=== PATIENT | female | born 1955 | race Caucasian/White ===

== ENCOUNTER 2019-12-10 13:45 | Outpatient (RCR) | payer MEDICARE, SELFPAY ==
--- NOTE | 2019-11-24 15:47 | PTOPEVAL ---
Thank you for referring Isabel Fernando to [facility]. Please review, sign, date and return this plan of care JOSLYN. I agree with and certify that the following plan of care is medically necessary. Referring Physician Date Admitting Provider: Attending Provider: Mini Spaulding, Referring Provider: *PT Outpatient Evaluation Start: 11/24/19 14:06 Freq: Status: Active Protocol: Document 11/24/19 14:14 GEORGE (Rec: 11/24/19 15:23 [facility] [email or web address]) Therapy Assessment Status Assessment Status Assessment Status Evaluation Outpatient Past Medical History Cardiovascular History Hx Hypertension Yes Musculoskeletal History Hx Back Injury Yes: L4 fracutre at age 27 Hx Joint Replacement Yes: right knee Endocrine History Hx Diabetes Yes Psychosocial History Hx Depression Yes: medication Other History Hx Cancer Yes: breast cx 2010 Evaluation Information Problem Diagnosis low back pain Onset January 2019 Cause lifting/carrying Subjective Information States that her back pain has existed since January 2019 when she moved houses. She feels that from all the lifting aggravated her sciatic nerve. States that it used to come and go, but now it is more constant and she experiences the symptoms on both sides. States she has been through therapy before so she has been trying to do those exercises that she previously learned. Functionally she is not able to walk as long as she used to. Denies constitutional symptoms or change in bowel/bladder function Previous Treatments For This Problem medication: cyclobenzaprine, acetaminophen/codein 3 Self Report Pain Assessment Lower Back Reported Pain Level 8 Pain Description Numbness,Tingling Pain Radiation Left Leg,Right Leg Pain Frequency Chronic,Continuous Lowest Pain Intensity 8 Greatest Pain Intensity 10 Pain Aggravating Factors Stair Climbing,Walking,Weight Bearing/Standing Lumbar ROM Lumbar Flexion Active Floor Query Text:Hands to: Lumbar Extension (0-40) 10 Lateral Rotation bilateral (0-45) 30 Normal Lumbar Segmental Motion No Lumbar Comments reports no increased pain with ROM activities Cervical and Lumbar Muscle Testing Lumbar Strength Upper Abdominal Strength 3 Fair Lower Abdominal Strength 3-Fair- Lower Extremity Muscle Strength Testing Hip Strength Bilateral Hip Flexion Strength 4 Good Hip Extension Strength 3- Fair - Hip Abduction Strength 3 Fair Hip Strength Comments pain with hip flexion Knee Strength Bilateral Knee Flex
--- NOTE | 2019-12-15 10:46 | PCPTNOTE ---
Patient called & cancelled scheduled appointment this date due to not feeling well.
--- NOTE | 2019-12-17 12:51 | PCPTNOTE ---
Patient did not show up for scheduled appointment this date.
--- NOTE | 2019-12-22 13:16 | PCPTNOTE ---
Patient did not show up for scheduled appointment this date.
--- NOTE | 2020-01-28 16:03 | PTOPEVAL ---
Thank you for referring Isabel Fernando to [facility]. Please review, sign, date and return this plan of care JOSLYN. I agree with and certify that the following plan of care is medically necessary. Referring Physician Date Admitting Provider: Attending Provider: Mini Spaulding, MD Referring Provider: *PT Outpatient Evaluation Start: 11/24/19 14:06 Freq: Status: Active Protocol: Document 11/24/19 14:14 GEORGE (Rec: 11/24/19 15:23 GEORGE [email or web address]) Therapy Assessment Status Assessment Status Assessment Status Evaluation Outpatient Past Medical History Cardiovascular History Hx Hypertension Yes Musculoskeletal History Hx Back Injury Yes: L4 fracutre at age 27 Hx Joint Replacement Yes: right knee Endocrine History Hx Diabetes Yes Psychosocial History Hx Depression Yes: medication Other History Hx Cancer Yes: breast cx 2009 Evaluation Information Problem Diagnosis low back pain Onset January 2019 Cause lifting/carrying Subjective Information States that her back pain has Query Text:As Reported By Patient/ exsisted since January 2019 Family when she moved houses. She feels that from all the lifting aggravated her sciatic nerve. States that it used to come and go, but now it is more constant and she experiences the symptoms on both sides. States she has been through therapy before so she has been trying to do those exercises that she previously learned. Functionally she is not able to walk as long as she used to Previous Treatments Previous Treatments For This Problem medication: cyclobenzaprine, acetaminophen/codein 3 Pain Assessment Timing of Pain Assessment Timing of Pain Assessment Assessment Pain Scale Pain Scale Used Numeric (1 - 10) Self Report Pain Assessment Lower Back Reported Pain Level 8 Pain Description Numbness,Tingling Pain Radiation Left Leg,Right Leg Pain Frequency Chronic,Continuous Lowest Pain Intensity 8 Greatest Pain Intensity 10 Pain Aggravating Factors Stair Climbing,Walking,Weight Bearing/Standing Pain Score Pain Score 8: Self Report Cervical and Lumbar ROM Lumbar RO
--- NOTE | 2020-01-28 16:03 | PCPTNOTE ---
PHYSICAL THERAPY DISCHARGE Attending Provider: Mini Spaulding, Patient:Isabel Fernando Date of :1955 Patient has not returned for any further treatments since 12/10/2019, therefore she will be discharged at this time. Patient?s initial visit was on 11/24/2019 and had a total of 4 visits. The goals have not been assessed. Thank you for referring this patient to [facility]. Please review, sign, date and return this discharge summary JOSLYN. I have been updated about the patient's current status and I agree with discharge from the above service at this time. Referring Physician Date
== END 2020-01-29 08:26 | disposition home or self-care (01) ==
LOC: ANHPT 13:45
PROVIDERS: PCP Family Medicine; Visit Provider Family Medicine
DX: M54.5 Low back pain (principal)
CPT/HCPCS: 97014; 97110; 97140; 97162; G0283

== ENCOUNTER 2020-05-02 10:07 | Outpatient (CLI) | payer MEDICARE, SELFPAY ==
--- NOTE | ~2020-05-02 | XR_ITS ---
EXAMINATION: XR lumbar spine 2-3V DATE: 05/02/2020 10:48 INDICATION: Lumbago. TECHNIQUE: 3 views of lumbar spine were obtained. COMPARISON: None. FINDINGS: There is 9 degrees levocurvature of lumbar spine. Vertebral body heights are normal. There is moderately decreased disc height at L2-L3, mildly decreased disc height at L3-L4, and severely dec reased disc height at L4-L5 and L5-S1. There are endplate osteophytes at all levels. There is multile albert severe facet joint osteoarthritis in lumbar spine. IMPRESSION: 1. Severe lumbar spondylosis. Reviewed, dictated and finalized at location B. NTORY ASSISTANT
== END 2020-05-02 10:08 | disposition home or self-care (01) ==
LOC: ANHIMG 10:20
PROVIDERS: PCP Family Medicine; Visit Provider Family Medicine
DX: M54.41 Lumbago with sciatica, right side (principal); M47.896 Other spondylosis, lumbar region
CPT/HCPCS: 72100

== ENCOUNTER 2020-05-20 12:31 | Outpatient (CLI) | payer MEDICARE, SELFPAY ==
--- NOTE | ~2020-05-20 | MR_ITS ---
EXAMINATION: MR lumbar spine wo/w con DATE: 05/20/2020 13:55 INDICATION: Other spondylosis, lumbar. TECHNIQUE: Magnetic resonance imaging (MRI) of the lumbar spine was performed without and with 18 mL MultiHance intravenous contrast. Sequences included sagittal T2-weighted FSE, sagittal T2-weighted FS FSE, and sagittal and axial T1-weighted FSE. Postcontrast sequences included axial T2-weighted FSE a nd axial and sagittal T1-weighted FS FSE. COMPARISON: Lumbar spine radiographs 05/02/2020 FINDINGS: There is 9 degrees levocurvature of lumbar spine. Vertebral body heights are normal. There is mildly decreased disc height at L1-L2, moderately decreased disc height at L2-L3 and L3-L4, and se verely decreased disc height at L4-L5 and L5-S1. The distal spinal cord signal intensity is normal. T he conus medullaris is at L1. The following disc levels are specifically discussed: L1-L2: The disc is bulging and has an annular fissure. There is mild right and moderate left facet henrry int osteoarthritis. There is mild bilateral neural foraminal stenosis. There is mild central canal st enosis. L2-L3: The disc is bulging and has an annular fissure. There is severe right and moderate left facet joint osteoarthritis. There is mild bilateral neural foraminal stenosis. There is mild central canal stenosis. L3-L4: The disc is bulging and has an annular fissure. There is severe bilateral facet joint osteoart hritis. There is moderate right and mild left neural foraminal stenosis. There is mild central canal stenosis. L4-L5: The disc is bulging and has an annular fissure. There is severe bilateral facet joint osteoart hritis. There is moderate right and mild left neural foraminal stenosis. There is mild central canal stenosis. L5-S1: The disc is bulging and has an annular fissure. There is severe bilateral facet joint osteoart hritis. There is mild right and moderate left neural foraminal stenosis. There is mild central canal stenosis. IMPRESSION: 1. Severe lumbar spondylosis. Reviewed, dictated and finalized at location A. ER HAND
[2020-05-20 13:20] LABS: Estimated Glomerular Filt Rate 56
== END 2020-05-20 12:32 | disposition home or self-care (01) ==
PROVIDERS: PCP Family Medicine; Visit Provider Family Medicine
DX: M47.817 Spondylosis without myelopathy or radiculopathy, lumbosacral region (principal); R30.9 Painful micturition, unspecified; M48.07 Spinal stenosis, lumbosacral region
CPT/HCPCS: 72158; A9577

== ENCOUNTER 2020-07-29 09:37 | Outpatient (CLI) | payer MEDICARE, SELFPAY ==
--- NOTE | ~2020-07-29 | US_ITS ---
US right upper quadrant DATE: 07/29/2020 12:41 INDICATION: Elevated liver enzymes TECHNIQUE: Real-time imaging of liver, pancreas, gallbladder areas COMPARISON: None FINDINGS: There is fatty infiltration of the liver. No hepatic space-occupying mass lesion is evident . Normal hepatopedal portal venous flow direction. No pancreatic mass lesion is evident. No gallstone s or gallbladder wall thickening. Negative sonographic Grande's sign. The common bile duct measures 3 .8 mm, normal. IMPRESSION: Hepatic steatosis Reviewed, dictated and finalized at Location A. Reviewed, dictated and finalized at location A. ATRIC RADIOLOGIST IMPRESSION: Hepatic steatosis
== END 2020-07-29 09:38 | disposition home or self-care (01) ==
PROVIDERS: PCP Family Medicine; Visit Provider Family Medicine
DX: R74.01 Elevation of levels of liver transaminase levels (principal); K76.0 Fatty (change of) liver, not elsewhere classified
CPT/HCPCS: 76705

== ENCOUNTER 2020-09-05 12:30 | Outpatient (RCR) | payer MEDICARE, SELFPAY ==
--- NOTE | 2020-08-18 10:43 | PTOPEVAL ---
Thank you for referring Isabel Fernando to [facility].? The patient is scheduled to be seen for therapy? 2 x/week for 6 weeks. Please review, sign, date and return this plan of care JOSLYN. I agree with and certify that the following plan of care is medically necessary. Referring Physician Date Referring Provider: Denton Beal MD Evaluation Information Problem Diagnosis lumbar stenosis Onset 3 yrs Additional Evaluation Detail She walks 2 blocks with her dogs but not consistently depending on weather She tripped over an object on the floor in April. Then she missed a step when standing near the steps a few weeks ago. CBD gummies to pain relief Subjective Information When she was ~23 she fell from Query Text:As Reported By Patient/ a rope swing fracturing her Family back. She reports chronic back pain that causes pain and weakness into her legs. The pain increased 1 yr ago. She walks the steps at home 10 times a day. But not performing an exercise program . She is unable to perform community walking. 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 She requires multiple rest due to pain. She performs yardwork during the summer. She recently finished painting the basement. Diagnostic Tests MRI For This Problem Yes: stenosis and bulging disc Previous Treatments Previous Treatments For This Problem 8 months ago Pain Assessment Self Report Pain Assessment Bilateral Lower Back Reported Pain Level 8 Pain Description Aching,Numbness,Radiating, Tender on Palpation Pain Radiation Left Leg,Right Leg Pain Frequency Chronic Lowest Pain Intensity 6 Greatest Pain Intensity 10 Cervical and Lumbar ROM Lumbar Flexion Active [place] Query Text:Hands to: Lateral Flexion distal thigh Query Text:Active Hands to: Lumbar Comments 10% trunk ext flex 50% of motion lateral flex 75% of motion pain with all trunk motions Lower Extremity Range of Mo
--- NOTE | 2020-09-01 12:50 | PCPTNOTE ---
Patient called & cancelled scheduled appointment this date due to not feeling well.
--- NOTE | 2020-09-08 13:26 | PCPTNOTE ---
Patient called & cancelled scheduled appointment this date due to not feeling well.
--- NOTE | 2020-09-12 14:40 | PCPTNOTE ---
Patient called & cancelled all scheduled appointments this date stating she is going to see a chiropractor who stated to hold on therapy at this time.
--- NOTE | 2020-09-13 07:48 | PCPTNOTE ---
Admitting Provider: Attending Provider: PHYSICIAN NOT ON STAFF Patient:Isabel Fernando Date of :1955 Discharge Note Patient has not returned for any further treatments since 09/05/2020, therefore she will be discharged at this time. She called to cancel her remaining visits due to going to a chiropractor instead. Patient?s initial visit was on 08/18/2020 09:30 and she had a total of 5 visits with 3 cancelled visits. The goals have been not met at this time due to limited therapy visits. Thank you for referring this patient to [facility]. Please review, sign, date and return this discharge summary JOSLYN. I have been updated about the patient's current status and I agree with discharge from the above service at this time. Referring Physician Date
== END 2020-09-13 10:10 | disposition home or self-care (01) ==
LOC: ANHPT 12:30
PROVIDERS: PCP Family Medicine
DX: M48.061 Spinal stenosis, lumbar region without neurogenic claudication (principal); M46.1 Sacroiliitis, not elsewhere classified
CPT/HCPCS: 97110; 97140; 97162

== ENCOUNTER 2021-06-19 15:46 | Emergency (ER) | payer MEDICARE, SELFPAY ==
[2021-06-19 16:39] VITALS: BP 151/100; PULSE 76; RESP 20; TEMP 36.2; O2SAT 98
--- NOTE | 2021-06-19 18:41 | ED.URI ---
HPI - URI/Sore Throat General Chief Complaint: Upper Respiratory Infection Stated Complaint: Runny nose, cough, sore throat Time Seen by Provider: 06/19/21 18:41 Source: patient Mode of arrival: ambulatory Limitations: no limitations History of Present Illness HPI Narrative: Isabel Fernando is a 66 yo female with depression, GERD, HTN, urinary incontinence, with cold symptoms and congestion and cough. Started on Saturday afternoon. she is fully vaccinated and has had a flu vaccine Related Data Home Medications Medication Instructions Recorded Confirmed citalopram 40 mg PO DAILY 06/19/21 06/19/21 dexlansoprazole [Dexilant] 60 mg PO DAILY 06/19/21 06/19/21 lisinopril-hydrochlorothiazide 1 tablet PO DAILY 06/19/21 06/19/21 losartan-hydrochlorothiazide 1 tablet PO DAILY 06/19/21 06/19/21 montelukast 10 mg PO DAILY 06/19/21 06/19/21 oxybutynin chloride 5 mg PO DAILY 06/19/21 06/19/21 ropinirole 0.5 mg PO DAILY 06/19/21 06/19/21 trazodone 100 mg PO DAILY 06/19/21 06/19/21 Allergies Allergy/AdvReac Type Severity Reaction Status Date / Time No Known Allergies Allergy Verified 06/19/21 18:12 Review of Systems Review of Systems: CONSTITUTIONAL: Denies fever, chills, sweats. EYES: Denies visual changes, redness, discharge. ENT: Denies rhinorrhea, has congestion, there has sore throat, otalgia. Has sinus congestion CARDIOVASCULAR: Denies chest pain, palpitations, edema. RESPIRATORY: Denies dyspnea, wheezing, has 1 cough GASTROINTESTINAL: Denies abdominal pain, nausea, vomiting, diarrhea. GENITOURINARY: Denies dysuria, hematuria, abnormal discharge SKIN: Denies rash or itching. NEUROLOGIC: Denies numbness, or focal weakness. PSYCHIATRIC: Denies anxiety or depression. [facility] Past Medical History Medical History Depression GERD (gastroesophageal reflux disease) Hypertension Seasonal allergies Social History Social History (Updated 06/19/21 @ 18:46 by Polly Anaya CNP) Smoking status: Never smoker Alcohol intake: current Comments At time of signature, I agree with nursing past medical, surgical, social and family history. There is no relevant family history pertinent to the presenting complaint. Exam Narrative: GENERAL: This is a well-nourished, well-developed patient, in mild distress. HEAD: normocephalic, atraumatic. EYES: PERRL. Sclera clear/white. Vision is grossly intact. EARS: External ears normal, auditory canals erythema and without drainage, fluid behind TMs. Hearing grossly intact. NOSE: External nose normal without nasal discharge, nares with redness, has rhinorrhea. THROAT: Mucous membranes moist, posterior pharynx erythema NECK: Neck supple, non-tender CARDIOVASCULAR: Regular rate and rhythm without murmurs, gallops, or rubs. RESPIRATORY: Clear to auscultation. Breath sounds equal bilaterally. No wheezes, rales, or rhonchi. GASTROINTESTINAL: Abdomen soft, SKIN: warm, intact with no suspicious lesions or rash, good texture and turgor. NEURO: awake, alert, and oriented to person, place and time. There were no obvious focal neurologic abnormalities. Steady gait EXTREMITIES: Normal range of motion. BACK: Nontender without deformity Course Course Emergency Course: Patient here with upper respiratory infection symptoms she has been Covid and flu vaccinated this started on Saturday afternoon and have not really improved with NyQuil and DayQuil Started on prednisone, Alex Beasley, Zyrtec Follow-up with PCP Vital Signs Vital signs: Vital Signs Temperature 97.1 F L 06/19/21 16:39 Pulse Rate 76 06/19/21 16:39 Respiratory Rate 20 06/19/21 16:39 Blood Pressure 151/100 H 06/19/21 16:39 Pulse Oximetry 98 06/19/21 16:39 Temperature 97.1 F L 06/19/21 16:39 Pulse Rate 76 06/19/21 16:39 Respiratory Rate 20 06/19/21 16:39 Blood Pressure 151/100 H 06/19/21 16:39 Pulse Oximetry 98 06/19/21 16:39 MDM - URI/Sore Throa
== END 2021-06-19 18:55 | disposition home or self-care (01) ==
PROVIDERS: Emergency Provider Nurse Practitioner
DX: J06.9 Acute upper respiratory infection, unspecified (principal); K21.9 Gastro-esophageal reflux disease without esophagitis; I10 Essential (primary) hypertension; F32.A Depression, unspecified
CPT/HCPCS: 87081; 87880; 99213; G0463

== ENCOUNTER 2023-04-03 13:48 | Outpatient (CLI) | payer MEDICARE, SELFPAY ==
--- NOTE | ~2023-04-03 | MR_ITS ---
EXAMINATION: MR lumbar spine wo con DATE: 04/03/2023 14:22 INDICATION: Left-sided low back pain. Lumbar radiculopathy.. TECHNIQUE: Magnetic resonance imaging (MRI) of the lumbar spine was performed without intravenous con trast. Sequences included sagittal T2-weighted FSE, sagittal T2-weighted FS FSE, sagittal T1-weighted FSE, and axial T2-weighted FSE. COMPARISON: Lumbar spine MRI 05/20/2020 FINDINGS: There is 13 degrees levoscoliosis of lumbar spine. Vertebral body heights are normal. There is moderately decreased disc height at L2-L3, mildly decreased disc height at L3-L4, and severely de creased disc height at L4-L5 and L5-S1. The distal spinal cord signal intensity is normal. The conus medullaris is at L1. The following disc levels are specifically discussed: L1-L2: The disc is bulging. There is moderate bilateral facet joint osteoarthritis. There is mild rig ht neural foraminal stenosis. There is mild central canal stenosis. L2-L3: The disc is bulging and has an annular fissure. There is severe bilateral facet joint osteoart hritis. There is mild bilateral neural foraminal stenosis. There is mild central canal stenosis. L3-L4: The disc is bulging and has an annular fissure. There is moderate bilateral facet joint osteoa rthritis. There is mild bilateral neural foraminal stenosis. There is mild central canal stenosis. L4-L5: The disc is bulging and has an annular fissure. There is severe bilateral facet joint osteoart hritis. There is moderate right and mild left neural foraminal stenosis. There is mild central canal stenosis with posterior decompression. L5-S1: The disc is bulging. There is severe bilateral facet joint osteoarthritis. There is mild right and moderate left neural foraminal stenosis. There is mild central canal stenosis. IMPRESSION: 1. Severe lumbar spondylosis with improvement from 05/20/2020 status post posterior decompression. 2. Lumbar levoscoliosis. Reviewed, dictated and finalized at location A. IMPRESSION: 1. Severe lumbar spondylosis with improvement from 05/20/2020 status post poste rior decompression. 2. Lumbar levoscoliosis.
== END 2023-04-03 13:49 ==
LOC: MICIMG 13:50
PROVIDERS: PCP Nurse Practitioner Family; Visit Provider Nurse Practitioner Family
DX: M47.26 Other spondylosis with radiculopathy, lumbar region (principal); M41.9 Scoliosis, unspecified
CPT/HCPCS: 72148

== ENCOUNTER 2023-04-11 12:34 | Emergency (ER) | payer MEDICARE, SELFPAY ==
[2023-04-11] VITALS (13 sets, daily range): BP systolic 90–111; BP diastolic 49–86; PULSE 53–63; RESP 16–20; TEMP 36.7; O2SAT 97–100
--- NOTE | 2023-04-11 12:47 | ECG_ITS ---
Measurements Intervals [place] Rate: 60 P: 38 OR: 190 QRS: 25 QRSD: 78 T: 43 QT: 434 QTc: 434 Interpretive Statements SINUS RHYTHM NO PREVIOUS ECG AVAILABLE FOR COMPARISON Electronically Signed On 04-12-2023 7:45:10 CDT by Josefina Rosales MD
--- NOTE | 2023-04-11 13:49 | ED.GENADULT ---
HPI - General Adult General Chief complaint: Recheck/Abnormal Lab/Rx Stated complaint: HYPOTENSION AT PAIN CLINIC Time Seen by Provider: 04/11/23 12:45 History of Present Illness HPI narrative: 67-year-old female presented the emergency department for evaluation of low blood pressure. Patient was at the pain clinic getting an injection for her lower back and her vitals were checked and she was found to have a low blood pressure. Patient was asymptomatic with this. Patient states she does not only take medications for high blood pressure. Patient states she has been eating and drinking well. Patient was able to drive to the clinic and ambulated in without any issues. Patient denies any associated lightheaded or dizziness. In the emergency department patient denies any complaints. Patient arrived to the emergency department by EMS from the pain clinic and did receive 500 mL of lactated Ringer's. Related Data Allergies Allergy/AdvReac Type Severity Reaction Status Date / Time No Known Allergies Allergy Verified 04/11/23 13:52 Review of Systems Review of Systems: All systems reviewed & are unremarkable except as noted in HPI and below Exam Narrative: APPEARANCE: Well appearing, no pain, no distress, well-nourished. HEAD: normocephalic, atraumatic. EYES: PERRLA/EOMI, conjunctivae clear. NOSE: Normal no drainage EARS:TMS clear with good light reflex. THROAT: Pharynx clear, no exudate. NECK: Supple. No adenopathy, no masses. RESPIRATORY: Airway patent, respirations nonlabored. Clear to auscultation bilaterally, no rales, rhonchi, wheezing. CARDIOVASCULAR: Regular rate and rhythm without murmurs rubs or gallops. ABDOMINAL: Soft, nontender, nondistended, normal bowel sounds MUSCULOSKELETAL: Moves all extremities. Strength/ROM intact, No edema, No calf tenderness. NEURO: Alert. Cranial nerves II through XII intact. Grossly intact SKIN: Warm, dry. Normal Color Course Course Emergency Course: 67-year-old female present emergency department for evaluation of low blood pressure. Patient was treated with 1.5 L of fluid and does feel improved. Patient was asymptomatic upon arrival to the ED and patient is now requesting discharge to home. Patient is afebrile with no leukocytosis and a stable hemoglobin. No significant electrolyte abnormalities. Vital Signs Vital signs: Vital Signs Temperature 98.0 F 04/11/23 12:41 Pulse Rate 63 04/11/23 12:41 Respiratory Rate 20 04/11/23 12:41 Blood Pressure 101/54 L 04/11/23 12:41 Pulse Oximetry 100 04/11/23 12:41 Oxygen Delivery Room Air 04/11/23 12:41 Temperature 98.0 F 04/11/23 12:41 Pulse Rate 57 L 04/11/23 15:31 Respiratory Rate 16 04/11/23 15:31 Blood Pressure 111/57 L 04/11/23 15:31 Pulse Oximetry 99 04/11/23 15:31 Oxygen Delivery Room Air 04/11/23 12:41 Medical Decision Making Vital Signs Vital Signs: Vital Signs Temperature 98.0 F 04/11/23 12:41 Pulse Rate 63 04/11/23 12:41 Respiratory Rate 20 04/11/23 12:41 Blood Pressure 101/54 L 04/11/23 12:41 Pulse Oximetry 100 04/11/23 12:41 Oxygen Delivery Room Air 04/11/23 12:41 Temperature 98.0 F 04/11/23 12:41 Pulse Rate 57 L 04/11/23 15:31 Respiratory Rate 16 04/11/23 15:31 Blood Pressure 111/57 L 04/11/23 15:31 Pulse Oximetry 99 04/11/23 15:31 Oxygen Delivery Room Air 04/11/23 12:41 Lab Data Lab results reviewed: Yes I reviewed the patient's lab results. 04/11/23 14:33 04/11/23 14:33 Labs: Lab Results 04/11/23 Range/Units 14:33 WBC 4.8 (4.5-10.0) K/mm3 RBC 3.66 L (4.2-5.4) M/mm3 Hgb 11.6 L (12.0-15.0) g/dL Hct 36.3 L (37.0-47.0) % MCV 99.2 (80-100) fl MCH 31.7 (26-34) pg MCHC 32.0 (32-36) g/dl RDW 13.8 (11.5-14.5) % Plt Count 136 L (150-375) k/mm3 MPV 9.5 (7.4-10.4) fl Immature Gran % (Auto) 0.2 (0-0.5) % Neut % (Auto) 59.5 (45.5-73.1) % Lymph % (Auto) 33
[2023-04-11] MEDS: SODIUM CHLORIDE 0.9% IV 1,000 ML 999 ML IV CONT (13:56)
[2023-04-11 14:43] LABS: Basophils Percent Auto 0.2 % (0.2-1.2); Eosinophils Percent Auto 0.4 % (0-4.4); Hematocrit 36.3 % (37.0-47.0); Hemoglobin 11.6 g/dL (12.0-15.0); Immature Granulocyte Absolute 0.01 K/mm3 (0.00-0.031); Immature Granulocyte Percent A 0.2 % (0-0.5); Lymphocytes Percent Auto 33.1 % (18.3-44.2); Mean Corpuscular Hemoglobin 31.7 pg (26-34); Mean Corpuscular Volume 99.2 fl (80-100); Mean Platelet Volume 9.5 fl (7.4-10.4); Monocytes Absolute Auto 0.3 K/mm3 (0.1-0.6); Monocytes Percent Auto 6.6 % (2.6-8.5); Neutrophils Absolute Auto 2.9 K/mm3 (1.3-6.7); Neutrophils Percent Auto 59.5 % (45.5-73.1); Platelet Count Result 136 k/mm3 (150-375); Red Blood Count 3.66 M/mm3 (4.2-5.4); Red Cell Distribution Width 13.8 % (11.5-14.5); White Blood Count 4.8 K/mm3 (4.5-10.0)
[2023-04-11 14:55] LABS: Alanine Aminotransferase 24 U/L (6-35); Albumin Level 4.1 g/dL (3.5-5.1); Alkaline Phosphatase 190 U/L (38-126); Anion Gap 6 mmol/L (8-16); Aspartate Amino Transferase 32 U/L (14-36); Bilirubin,Total 1.4 mg/dL (0.2-1.3); Blood Urea Nitrogen 12 mg/dL (7-17); Calcium 8.9 mg/dL (8.4-10.2); Carbon Dioxide 24 mmol/L (22-30); Chloride 98 mmol/L (98-107); Estimated CRCL calculation 70 ml/min; Estimated Glomerular Filt Rate > 60; Glucose 129 mg/dL (65-110); Sodium 128 mmol/L (137-145)
[2023-04-11 15:22] LABS: Influenza A QL RT-PCR Negative (Negative); Influenza B QL RT-PCR Negative (Negative); RSV RNA, RT-PCR Negative (Negative); SARS-CoV-2 RNA PCR Negative (Negative)
== END 2023-04-11 15:46 | disposition home or self-care (01) ==
PROVIDERS: Emergency Provider Emergency Medicine; PCP Nurse Practitioner Family
DX: I95.9 Hypotension, unspecified (principal); Z20.822 Contact with and (suspected) exposure to COVID-19
CPT/HCPCS: 36415; 80053; 85025; 87637; 93005; 96360; 96361; 99283; J7030

== ENCOUNTER 2023-11-25 16:10 | Emergency (ER) | payer MEDICARE, SELFPAY ==
[2023-11-25 16:23] VITALS: BP 142/90; PULSE 89; RESP 20; TEMP 37.7; O2SAT 96
--- NOTE | 2023-11-25 20:13 | ED.EXTPRO ---
HPI - Extremity Problem General Chief complaint: Extremity Problem,Nontraumatic Stated complaint: Left Foot/Leg Swelling and Pain Time Seen by Provider: 11/25/23 16:26 Source: patient and RN notes reviewed Mode of arrival: ambulatory Limitations: no limitations History of Present Illness HPI Narrative: Patient presents today with a 3 week history of the left foot pain, primarily in the arch area, and extending to the medial ankle. Denies any injury or trauma. She has been applying ice. She also takes tramadol and Flexeril for her chronic pain, which have not been helping with her foot pain. She also reports similar pain to the right foot, but to a less degree. Patient states she is treated for chronic sciatica pain on the left side with injections. States she does have pain from the left SI joint that extends down the thigh, calf, to the foot. She recently quit physical therapy as she did not likely exercises. Related Data Home Medications Medication Instructions Recorded Confirmed cyclobenzaprine 5 mg tablet mg 11/25/23 dexlansoprazole 60 mg mg 11/25/23 capsule,biphase delayed release estradiol 2 mg tablet mg 11/25/23 montelukast 10 mg tablet mg 11/25/23 trazodone 100 mg tablet mg 11/25/23 Allergies Allergy/AdvReac Type Severity Reaction Status Date / Time No Known Allergies Allergy Verified 11/25/23 16:33 Review of Systems Review of Systems: CONSTITUTIONAL: Denies body aches, fever, chills, or sweats. EYES: Denies visual changes, redness, or discharge. ENT: Denies rhinorrhea, congestion, sore throat, or otalgia. CARDIOVASCULAR: Denies chest pain, palpitations, or edema. RESPIRATORY: Denies cough or dyspnea. GASTROINTESTINAL: Denies abdominal pain, nausea, vomiting, or diarrhea. GENITOURINARY: Denies dysuria or hematuria. SKIN: Denies rash, itching, or wounds. MUSCULOSKELETAL: + left foot pain NEUROLOGIC: Denies headache, numbness, tingling, or weakness. PSYCH: Denies depression or anxiety. [facility] Past Medical History Medical History (Updated 11/25/23 @ 20:15 by Ilda Dior, HAND ROUNDER, ) Chronic back pain Comments At time of signature, I have reviewed and agree with nursing past medical, surgical, social and family history unless otherwise noted. Please see nursing chart for further information. There is no relevant family history pertinent to the presenting complaint Exam Narrative: GENERAL: Well-appearing, well-nourished, and in no acute distress. HEAD: Normocephalic, atraumatic. EYES: EOMI. No redness or drainage. Conjunctivae normal. ENT: Mucous membranes pink and moist. NECK: Normal AROM. CHEST: No respiratory distress. EXTREMITIES: Left foot: Mild tenderness to the arch that extends to the medial ankle. Also some mild tenderness to the distal foot at the 3rd and 4th metatarsals. No edema, erythema, ecchymosis to the foot or ankle. No color change noted. Left foot appears consistent with a right foot in all aspects. Distal sensation intact. Capillary refill normal. Pedal pulse normal. Full range of motion of the ankle and all toes. SKIN: Warm, dry, no rash. Capillary refill normal. Normal skin turgor. NEURO: No focal deficits. Alert and oriented x3. Gait steady with cane. PSYCH: Normal affect. No signs of depression or anxiety. Course Course Level of Care: Express Care Visit Vital Signs Vital signs: Vital Signs Temperature 100 F H 11/25/23 16:23 Pulse Rate 89 11/25/23 16:23 Respiratory Rate 20 11/25/23 16:23 Blood Pressure 142/90 H 11/25/23 16:23 Pulse Oximetry 96 11/25/23 16:23 Oxygen Delivery Room Air 11/25/23 16:23 Temperature 100 F H 11/25/23 16:23 Pulse Rate 89 11/25/23 16:23 Respiratory Rate 20 11/25/23 16:23 Blood Pressure 142/90 H 11/25/23 16:23 Pulse Oximetry 96 11/25/23 16:23 Oxygen Delivery Room Air 11/25/23 16:23 Reviewed MDM - Extremity (Nontraumatic) MDM Narrative Medical decision making
== END 2023-11-25 16:55 | disposition home or self-care (01) ==
PROVIDERS: Emergency Provider Nurse Practitioner; PCP Nurse Practitioner Family
DX: M54.32 Sciatica, left side (principal)
CPT/HCPCS: 99212; G0463

== ENCOUNTER 2023-12-31 15:24 | Emergency (ER) | payer MEDICARE, SELFPAY ==
--- NOTE | ~2023-12-31 | US_ITS ---
EXAMINATION:US venous doppler LE LT INDICATION:Left leg pain TECHNIQUE: Multiple grayscale, color flow and Doppler images of the left lower extremity deep venous systems were obtained and reviewed. COMPARISON:No prior studies for comparison. FINDINGS: The common femoral, superficial femoral and popliteal veins demonstrate normal respiratory variation, augmentation and compressibility. Color flow is also seen within the posterior tibial, pe roneal, greater saphenous and profunda veins. IMPRESSION: 1: No lower extremity deep venous thrombosis. Reviewed, dictated and finalized at location B.
[2023-12-31 16:07] VITALS: BP 140/61; PULSE 85; RESP 16; TEMP 36.8; O2SAT 98
--- NOTE | 2023-12-31 17:52 | ED.EXTPRO ---
HPI - Extremity Problem General Chief complaint: Extremity Problem,Nontraumatic Stated complaint: left ankle swelling x 1 week Time Seen by Provider: 12/31/23 16:38 History of Present Illness HPI Narrative: This is a 68-year-old female with history of hypertension, who presents to emergency department complaining of left ankle swelling for the past week. The patient states both legs swell, though the left has been worse recently. She states this is worse with prolonged sitting and improves with elevation of the legs or walking. She denies chest pain, shortness of breath, loss of consciousness and has no other complaints at this time. Related Data Home Medications Medication Instructions Recorded Confirmed citalopram 40 mg tablet 40 mg PO DAILY 06/19/21 06/19/21 dexlansoprazole 60 mg 60 mg PO DAILY 06/19/21 06/19/21 capsule,biphase delayed release (Dexilant) lisinopril 20 1 tablet PO DAILY 06/19/21 06/19/21 mg-hydrochlorothiazide 12.5 mg tablet losartan 100 1 tablet PO DAILY 06/19/21 06/19/21 mg-hydrochlorothiazide 12.5 mg tablet montelukast 10 mg tablet 10 mg PO DAILY 06/19/21 06/19/21 oxybutynin chloride 5 mg tablet 5 mg PO DAILY 06/19/21 06/19/21 ropinirole 0.5 mg tablet 0.5 mg PO DAILY 06/19/21 06/19/21 trazodone 100 mg tablet 100 mg PO DAILY 06/19/21 06/19/21 Allergies Allergy/AdvReac Type Severity Reaction Status Date / Time No Known Allergies Allergy Verified 06/19/21 18:12 Review of Systems Review of Systems: All systems reviewed & are unremarkable except as noted in HPI and below PMFSH Past Medical History Medical History Depression GERD (gastroesophageal reflux disease) Hypertension Seasonal allergies Social History Social History (Updated 12/31/23 @ 19:29 by Roberto Rosado MD) Smoking status: Never smoker Alcohol intake: current Substance use: never Exam Narrative: GENERAL: Well-developed, well-nourished, and in no acute distress. HEAD: Normocephalic, atraumatic. EYES: PERRLA and EOMI. CHEST: Clear to auscultation. No respiratory distress. No wheezes rales or rhonchi HEART: Regular rate and rhythm. No murmur heard. Normal peripheral pulses. ABDOMEN: Soft, nontender, nondistended, normal active bowel sounds. EXTREMITIES: Normal range of motion. Bilateral lower extremity trace edema extending to the mid foreleg SKIN: Warm, dry, no rash. NEURO: Alert and oriented x3. No focal deficit. Moving all 4 limbs spontaneously PSYCH: Normal mood and affect. Course Course Emergency Course: 17:54 - Ultrasound of the left leg not concerning for DVT. I suspect dependent edema. I discussed further evaluation with the patient, including labs, and x-ray to evaluate for cardiac cause. The patient prefers to follow up with her primary care doctor. Will treat with a short course of Lasix. I discussed the findings and recommendations with the patient. Discussed return and emergency precautions including signs/symptoms of ACS and CHF. The patient voiced understanding and agreement with the plan. All questions answered to her satisfaction. Vital Signs Vital signs: Vital Signs Temperature 98.2 F 12/31/23 16:07 Pulse Rate 85 12/31/23 16:07 Respiratory Rate 16 12/31/23 16:07 Blood Pressure 140/61 12/31/23 16:07 Pulse Oximetry 98 12/31/23 16:07 Temperature 98.2 F 12/31/23 16:07 Pulse Rate 85 12/31/23 16:07 Respiratory Rate 16 12/31/23 16:07 Blood Pressure 140/61 12/31/23 16:07 Pulse Oximetry 98 12/31/23 16:07 MDM - Extremity (Nontraumatic) MDM Narrative Medical decision making narrative: Plan: Imaging, reassess Differential Diagnosis Differential diagnosis: Likely other (DVT, dependent edema, other) Discharge Plan Discharge Clinical Impression: Lower extremity edema Patient Disposition: Home, Self-Care Condition: Stable Instructions: Antibiotic Form, Leg Edema (E
== END 2023-12-31 18:02 | disposition home or self-care (01) ==
PROVIDERS: Emergency Provider Preventive Medicine Aerospace Medicine; PCP Nurse Practitioner Family
DX: R60.0 Localized edema (principal); I10 Essential (primary) hypertension; K21.9 Gastro-esophageal reflux disease without esophagitis; F32.A Depression, unspecified; Z79.899 Other long term (current) drug therapy
CPT/HCPCS: 93971; 99284

== ENCOUNTER 2025-01-25 16:25 | Outpatient (CLI) | payer MEDICARE, SELFPAY ==
--- NOTE | ~2025-01-25 | US_ITS ---
EXAMINATION: US venous doppler [facility] DATE: 01/25/2025 17:04 INDICATION: Lower limb pain TECHNIQUE: Grayscale ultrasound images without and with compression and Doppler ultrasound images of the bilateral lower extremity veins were obtained. COMPARISON: None. FINDINGS: The visualized portions of right common femoral vein, profunda (deep) femoral vein, femoral vein, pop liteal vein, posterior tibial veins, peroneal veins, gastrocnemius vein and greater saphenous vein ou tflow are patent. The visualized portions of left common femoral vein, profunda femoral vein, femoral vein, popliteal v ein, posterior tibial veins, peroneal veins, gastrocnemius vein and greater saphenous vein outflow ar e patent. IMPRESSION: 1. No deep venous thrombosis in either lower limb. Reviewed, dictated and finalized at location A.
--- OUTSIDE RECORDS SUMMARY | 2025-01-25 16:29 | XMS_ITS | Clinical Summary ---
Author Organization [facility] Address [facility] [place] [address] Care Team Providers Care Used Equipment Sales Representative Name Role Phone Linda Abbasi HA Primary Care Provider [phone] Allergies Active Allergy Reactions Criticality Noted Date Comments Cyclobenzaprine Swelling Medium 01/23/2024 Tape Contact Dermatitis High 06/30/2018 Cloth/Paper tape OK Medications citalopram (CELEXA) 10 MG tabletIndicatio ns:Anxiety TAKE 1 TABLET BY MOUTH EVERY DAY 90 tablet 3 12/05/19 24 Active traZODone (DESYREL) 100 MG tabletIndicatio ns:Primary insomnia Take 1 tablet (100 mg total) by mouth nightly at bedtime. 90 tablet 3 12/05/19 24 Active gabapentin (NEURONTIN) 300 MG capsuleIndicati ons:Lumbar spondylosis Take 1 capsule (300 mg total) by mouth 3 (three) times daily. 90 capsule 5 05/04/20 24 Active vitamin B-12 (CYANOCOBALAMIN ) 500 MCG tablet Take 1 tablet (500 mcg total) by mouth daily. Active fluticasone propionate (FLONASE) 50 MCG/ACT nasal sprayIndication s:Allergic rhinitis, unspecified seasonality, unspecified trigger 1 spray by Each Nostril route daily. 15.8 mL 5 06/22/20 24 Active vitamin E 100 UNIT capsule Take 1 capsule (100 Units total) by mouth daily. Active Vitamin D3 125 mcg Tab Take 1 tablet (125 mcg total) by mouth daily. Active tavaborole (KERYDIN) 5 % solutionIndicat ions:Toenail fungus APPLY TOPICALLY TO AFFECTED NAILS ONCE DAILY 10 mL 1 07/27/19 25 Active varenicline, starter pack, (CHANTIX STARTING MONTH ) 0.5 MG X 11 & 1 MG X 42 tabletIndicatio ns:Encounter for smoking cessation counseling Take one tablet daily for 3 days then increase to two times a day 53 each 07/27/19 25 Active KNEE BRACE MISC, DME,Indications :Chronic pain of left knee Apply 1 Device topically daily. 1 Device 08/04/19 25 Active montelukast (SINGULAIR) 10 MG tabletIndicatio ns:Allergies Take 1 tablet (10 mg total) by mouth daily. 30 tablet 11 10/10/19 25 Active dexlansoprazole (DEXILANT) 60 MG capsuleIndicati ons:Gastroesoph ageal reflux disease without esophagitis Take 1 capsule (60 mg total) by mouth daily. 90 capsule 10/17/19 25 Active traMADol (ULTRAM) 50 MG tabletIndicatio ns:Lumbar spondylosis,Bul ging lumbar disc TAKE 1 TO 2 TABLETS(50 TO 100 MG) BY MOUTH EVERY 8 HOURS NEEDED FOR PAIN OR CHRONIC PAIN 100 tablet 2 01/06/20 25 Active pantoprazole EC (PROTONIX) 40 MG tabletIndicatio ns:Gastroesopha geal reflux disease without esophagitis TAKE 1 TABLET(40 MG) BY MOUTH DAILY 90 tablet 01/16/20 25 Active traMADol (ULTRAM) 50 MG tabletIndicatio ns:Lumbar spondylosis,Bul ging lumbar disc TAKE 1 TO 2 TABLETS(50 TO 100 MG) BY MOUTH EVERY 8 HOURS NEEDED FOR PAIN OR CHRONIC PAIN 100 tablet 1 11/21/19 25 025 Discontinued pantoprazole EC (PROTONIX) 40 MG tabletIndicatio ns:Gastroesopha geal reflux disease without esophagitis TAKE 1 TABLET(40 MG) BY MOUTH DAILY 30 tablet 1 12/11/19 25 025 Discontinued Active Problems Problem Noted Date Diagnosed Date Morbid (severe) obesity due to excess calories 0 07/27/2024 Jaundice 07/27/2024 Toenail fungus 07/27/2024 Elevated liver enzymes 07/27/2024 Liver disease, chronic 07/27/2024 Mixed conductive and sensori neural hearing loss of both ears 07/27/2024 Tinnitus of both ears 07/27/2024 Allergic rhinitis, unspecifi ed seasonality, unspecified trigger 06/23/2024 Liver lesion 06/23/2024 Hepatomegaly 05/04/2024 Chronic pain of left knee 05/04/2024 Splenomegaly 05/04/2024 Early satiety 04/20/2024 Acute left ankle pain 01/23/2024 Ankle swelling, left 01/23/2024 Injury 01/23/2024 Left foot pain 01/23/2024 Bilateral sciatica 01/23/2024 Alcohol abuse, in remission 03/29/2023 Other fatigue 03/29/2023 Mixed stress and urge urinary incontinence 03/25 Status post lumbar spinal fusion 03/28/2022 Physical deconditioning 01/12/2022 Lumbar stenosis 01/10/2022 Sacroiliitis 06/26/2021 Lumbar spondylosis 06/26/2021 Chronic midline low back pain with left-sided sc iatica 06/26/2021 Bulging lumbar disc 06/26/2021 Atopic dermatitis, unspecified type 06/26/2021 Vitamin D deficiency 06/26/2021 Class 2 severe obesity due t o excess calories with serious comorbidity and body mass index (BMI) of 36.0 to 36.9 in adult 06/26/2021 Neuropathy 06/26/2021 Cigarette smoker 06/26/2021 Insomnia 04/18/2021 Anxiety 07/22/2019 Depressive disorder 07/22/2019 Hypertensive disorder 07/22/2019 Gastroesophageal reflux disease without esophagi tis 07/22/2019 Resolved Problems Problem Noted Date Diagnosed Date Resolved Date Screening for colon cancer 05/04/2024 1 07/11/2023 Malignant neoplasm of overla pping sites of pancreas ([facility]) 04/20/2024 06/22/2024 Muscle spasms of both lower extremities 12/06/2023 06/23/2024 Frequent urination 03/25/2023 Alcohol abuse 06/26/2021 06/23/2024 Chronic obstructive lung dis ease ([facility]) 07/22/2019 06/26/2021 Encounters Date Type Department Care Team Description 01/11/2025 Telephone [facility] Family [facility] Internal Medicine [address] [phone] Linda Abbasi FNP Health Maintenance Follow Up 01/05/2025 Results Follow-Up [facility] Internal [address] [phone] Linda Abbasi FNP COMPREHENSIVE METABOLIC PANEL 12/30/2024 Telephone [facility] Internal [address] [phone] Linda Abbasi FNP Results 12/28/2024 Scan HEALTH INFO SRVCS Scanned, [facility] 11/09/2024 Telephone [facility] Internal [address] [phone] Linda Abbasi FNP Medication 10/26/2024 Telephone [facility] Internal [address] [phone] Linda Abbasi FNP Lab Order from Last 3 Months Immunizations Immunization Administration Dates Next Due Flublok (RIV3, Trivalent, 0.5mL) 04/16/2024 Fluzone 6 Months+ Quad (0.5 mL Prefilled Syringe ) 04/08/2020 Fluzone High Dose - >Age 65 (Prefilled Syringe) 03/25/2023,05/08/2022 Influenza Adult (Generic) 2021,04/08/2020 Pneumococcal (Prevnar 20) 07/13/2022 Tdap (Adacel) 06/26/2021 Family History Medical History Relation Comments Heart Disease Father Stroke Father Cancer Maternal Grandmother breast canc er Cancer Mother breast cancer Breast Cancer Sister 1 Relation Status Comments Father Maternal Grandmother Mother Sister 1 Alive Sister 2 Alive Social History Tobacco Use Types Packs/Day Years Used Date Smoking Tobacco: Former Cigarettes Passive Smoke Exposure: Current Smokeless Tobacco: Never Tobacco Cessation:Counseling Given: Yes Alcohol Use Standard Drinks/Week Comments Not Currently 0 (1 standard drink = 0.6 oz pur e alcohol) quit 5 mons. ago PHQ-2 Answer Date Recorded Patient Health Questionnaire-2 Score 0 07/27/2024 Comments No Sex and Gender Information Value Date Recorded Sex Assigned at Female 07/27/2024 1:43 PM BUILDINGS PAINTER Legal Sex Female 6:34 PM CDT Gender Identity Female 07/27/2024 1:43 PM BUILDINGS PAINTER Sexual Orientation Not on file Last Filed Vital Signs Vital Sign Reading Time Taken Comments Blood Pressure 137/75 09/16/2024 2:04 PM CDT Pulse 74 09/16/2024 2:04 PM CDT Temperature 36.1 C (97 F) 09/16/2024 2:04 PM CDT Respiratory Rate 16 07/27/2024 1:49 PM BUILDINGS PAINTER Oxygen Saturation 95% 07/27/2024 1:49 PM BUILDINGS PAINTER Inhaled Oxygen Concentration - - Weight 94.3 kg (208 lb) 09/16/2024 2:04 PM CDT Height 160 cm (5' 3) 09/16/2024 2:04 PM CDT Body Mass Index 36.85 09/16/2024 2:04 PM CDT Plan of Treatment Health Maintenance Due Date Last Done Comments Mammogram Screening 1997 Zoster Vaccines (1 of 2) 2007 RSV Immunization or 60+ Years (1 - Risk 60-74 years 1-dose series) 2017 Annual Medicare Wellness Visit 2022 Dexa Scan (General) 2022 COVID-19 Vaccine ( season) 2024 04/16/2024, 04/12/2023, 05/08/2022, Additional history exists Colorectal Cancer Screening FIT-DNA (3 Years) 07/30/2025 07/30/2022, 07/30/2022 DTaP, Tdap and Td Vaccines (2 - Td or Tdap) 06/26/2031 06/26/2021 Pneumococcal Vaccine: 50+ Years Completed 07/13/2022 Hepatitis C Completed 04/17/2024, 06/28/2021 PHQ-2 (Physician [place]) Completed 07/27/2024 Meningococcal B Vaccine Aged Out No l onger eligible based on patient's age to complete this topic Meningococcal Vaccine Aged Out No asa zoe eligible based on patient's age to complete this topic RSV Immunizations Under 20 Months Aged Out No longer eligible based on patient's age to complete this topic Goals Goal Patient Goal Type Associated Problems Recent Progress Patient-Stated? Author Safety - demonstrates understanding of home safety measures General No Brandee Yu M, RN Medical Devices Implanted Type Area Juvenile Counselor Device Identifier Shelf Expiration Date Model / Serial / Lot Knee Components Knee Components Procedures Procedure Name Priority Date/Time Associated Diagnosis Comments COMPREHENSIVE METABOLIC PANEL Routine 12/28/2024 12:26 PM CDT Liver lesion Splenomegaly Hepatomegaly Elevated liver enzymes HEPATITIS PANEL,ACUTE Routine 04/17/2024 11:20 AM CDT Liver lesion Elevated liver enzymes Abnormal CT of the abdomen Liver function abnormality COLOGUARD (EXACT SCIENCE) Routine 07/30/2022 1:00 AM BUILDINGS PAINTER Colon cancer screening from Last 3 Months or Most Recently Relevant to Health Maintenance Results * (ABNORMAL) COMPREHENSIVE METABOLIC PANEL (12/28/2024 12:26 PM CDT) GLUCOSE 105(H) 70 - 99 mg/dL [facility] BUN 9 8 - 27 mg/dL [facility] CREATININE S/P/B 0.67 0.57 - 1.00 mg/dL [facility] 1 GFR ESTIMATE 96 >59 mL/min/1.7 3 [facility] 1 BUN CREATININE RATIO 13 12 - 28 [facility] 1 SODIUM S/P/B 135 134 - 144 mmol/L [facility] 1 POTASSIUM S/P/B 4.0 3.5 - 5.2 mmol/L [facility] 1 CHLORIDE S/P/B 100 96 - 106 mmol/L [facility] 1 CO2 20 20 - 29 mmol/L [facility] 1 CALCIUM S/P/B 9.9 8.7 - 10.3 mg/dL [facility] 1 TOTAL PROTEIN S/P/B 9.1(H) 6.0 - 8.5 g/dL [facility] 1 ALBUMIN S/P/B 3.6(L) 3.9 - 4.9 g/dL [facility] 1 GLOBULIN 5.5(H) 1.5 - 4.5 g/dL [facility] 1 BILIRUBIN TOTAL S/P/B 6.7(H) 0.0 - 1.2 mg/dL [facility] 1 ALKALINE PHOSPHATASE S/P/B 157(H) 44 - 121 IU/L [facility] 1 AST 39 0 - 40 IU/L [facility] 1 ALT 25 0 - 32 IU/L [facility] 1 12/28/2024 12:2 6 PM CDT 12/28/2024 Narrative [facility] - 12/29/2024 12:10 PM CDT Performed at: 01 - [facility] [address] [id number] Adjustment Examiner: Luis Angel Cross PhD, Phone: [phone] [facility] LABORATORY Final Result Performing Organization Address City/[facility] Co de Phone Number [facility] [address] [place] [address] [facility] 1 * HEPATITIS PANEL,ACUTE (04/17/2024 11:20 AM CDT) Pathologist [facility] HEPATITIS B SURFACE AG NON-REACTI VE NON-REACTI VE 04/17/2024 12:08 PM CDT [facility] HEP B CORE IGM NON-REACTI VE NON-REACTI VE 04/17/2024 12:38 PM CDT [facility] HAV IGM NON-REACTI VE NON-REACTI VE 04/17/2024 12:39 PM CDT [facility] HEPATITIS C AB NON-REACTI VE NON-REACTI VE 04/17/2024 12:37 PM CDT [facility] 04/17/2024 11:2 0 AM CDT [facility] LABORATORY Final Result Performing Organization Address [facility] Co de Phone Number [facility] [address] [place] [address], [place] [phone] * COLOGUARD (EXACT SCIENCE) (07/30/2022 1:00 AM BUILDINGS PAINTER) Pathologist [facility] COLOGUARD RESULT Negative Negative [facility] (CLIA #:[id number]) Comment: NEGATIVE TEST RESULT. A negative Cologuard result indicates a low likelihood that a colorectal cancer (CRC) or advanced adenoma (adenomatous polyps with more advanced pre-malignant features) is present. The chance that a person with a negative Cologuard test has a colorectal cancer is less than 1 in 1500 (negative predictive value >99.9%) or has an advanced adenoma is less than 5.3% (negative predictive value 94.7%). These data are based on a prospective cross-sectional study of 10,000 individuals at average risk for colorectal cancer who were screened with both Cologuard and colonoscopy. (Denis Acevedo et al, N Engl J Med 2014;370(14):5238-0863) The normal value (reference range) for this assay is negative. COLOGUARD RE-SCREENING RECOMMENDATION: Periodic colorectal cancer screening is an important part of preventive healthcare for asymptomatic individuals at average risk for colorectal cancer. Following a negative Cologuard result, the [place] [employer] Society and U.S. Multi-Society Task Force screening guidelines recommend a Cologuard re-screening interval of 3 years. References: [employer] Guideline for Colorectal Cancer Screening: https://www.cancer.org/cancer/bveik-gsfblr-ijxqbn/jbkarcalc-gxuiasyis-phoccwu/ac s-rec ommendations.html.; Cj DK, Francois DICKENS, Zheng MartinezK, Colorectal Cancer Screening: Recommendations for Physicians and Patients from the U.S. Multi-Society Task Force on Colorectal Cancer Screening , Am J Gastroenterology 2017; 112:5922-9116. TEST DESCRIPTION: Composite algorithmic analysis of stool DNA-biomarkers with hemoglobin immunoassay. Quantitative values of individual biomarkers are not reportable and are not associated with individual biomarker result reference ranges. Cologuard is intended for colorectal cancer screening of adults of either sex, 45 years or older, who are at average-risk for colorectal cancer (CRC). Cologuard has been approved for use by the U.S. FDA. The performance of Cologuard was established in a cross sectional study of average-risk adults aged 50-84. Cologuard performance in patients ages 45 to 49 years was estimated by sub-group analysis of near-age groups. Colonoscopies performed for a positive result may find as the most clinically significant lesion: colorectal cancer [4.0%], advanced adenoma (including sessile serrated polyps greater than or equal to 1cm diameter) [20%] or non- advanced adenoma [31%]; or no colorectal neoplasia [45%]. These estimates are derived from a prospective cross-sectional screening study of 10,000 individuals at average risk for colorectal cancer who were screened with both Cologuard and colonoscopy. (Denis Robles, N Engl J Med 2014;370(14):0066-5721.) Cologuard may produce a false negative or false positive result (no colorectal cancer or precancerous polyp present at colonoscopy follow up). A negative Cologuard test result does not guarantee the absence of CRC or advanced adenoma (pre-cancer). The current Cologuard screening interval is every 3 years. ([employer] and U.S. Multi-Society Task Force). Cologuard performance data in a 10,000 patient pivotal study using colonoscopy as the reference method can be accessed at the following location: www.[email or web address]/results. Additional description of the Cologuard test process, warnings and precautions can be found at www.cologuard.com. STOOL STOOL SPECIMEN / Unknown 07/30/2022 1:00 AM BUILDINGS PAINTER 07/31/2022 1:28 PM BUILDINGS PAINTER Linda Abbasi OPERATING SYSTEM PROGRAMMER BODY FLUIDS AND STOOLS ORDERAB LES Final Result [facility]) [address] [place] [address], [employer] (CLIA #:[id number]) [address] [place] [address] from Last 3 Months or Most Recently Relevant to Health Maintenance Insurance Advance Directives * Full Code (Latest Code Status on File) Date Activated Date Inactivated Comments 01/11/2022 11:24 PM 01/16/2022 4:28 PM Care Teams Used Equipment Sales Representative Relationship Specialty Start Date End Date Linda Abbasi FNP [address] [place] [id number] PCP - General Nurse Practitioner Family 06/26/21
--- OUTSIDE RECORDS SUMMARY | 2025-01-25 16:29 | XMS_ITS | Encounter Summary ---
Author Organization [facility] Address [address] [place] [address] Care Team Providers Care Integration Director Name Role Phone Linda Abbasi HA Primary Care Provider [phone] Elisa Melvin RN Unavailable [phone] Reason for Visit * Reason Onset Date Comments Follow Up Call 01/20/2022 Encounter Details Date Type Department Care Team (Late st Contact Info) Description 01/20/2022 Hospital Follow-up Call [facility] [address] [place] [address] Angelina Younger, RN Follow Up Call Social History Tobacco Use Types Packs/Day Years Used Date Smoking Tobacco: Light Smoker Cigarettes Smokeless Tobacco: Never Comments:ocassional 5 cigs e very couple days Alcohol Use Standard Drinks/Week Comments Yes 1.7 (1 standard drink = 0.6 oz p ure alcohol) every other day PHQ-2 Answer Date Recorded PHQ-2 Score - If the patient scores above 3, please move on to questions 3-9 0 06/26/2021 Comments No Sex and Gender Information Value Date Recorded Sex Assigned at Female 07/27/2024 1:43 PM HVAC SPECIALIST Legal Sex Female 6:34 PM CDT Gender Identity Female 07/27/2024 1:43 PM HVAC SPECIALIST Sexual Orientation Not on file COVID-19 Exposure Response Date Recorded In the last 10 days, have yo u been in contact with someone who was confirmed or suspected to have Coronavirus/COVID-19? No / Unsure 01/11/2022 11:38 PM CDT documented as of this encounter Functional Status * RETIRED Are you deaf or do you have serious difficulty hearing Answer Date of Assessment Author Status Yes 01/12/2022 12:08 AM CDT Acti ve * RETIRED Are you blind or do you have serious difficulty seeing, even when wearing glasses? Answer Date of Assessment Author Status Yes 01/12/2022 12:08 AM CDT Acti ve * Do you have serious difficulty walking or climbing stairs? Answer Date of Assessment Author Status Yes 01/12/2022 12:08 AM Ana Rondon RN Active * Do you have difficulty dressing or bathing? Answer Date of Assessment Author Status Yes 01/12/2022 12:08 AM Ana Rondon RN Active * Because of a physical, mental, or emotional condition, do you have difficulty doing errands alone such as visiting a doctor's office or shopping? Answer Date of Assessment Author Status Yes 01/12/2022 12:08 AM Ana Rondon RN Active documented as of this encounter Mental Status * Because of a physical, mental, or emotional condition, do you have serious difficulty concentrating, remembering, or making decisions? Answer Entry Date Author Status No 01/12/2022 12:08 AM Ana Rondon RN Active documented in this encounter Plan of Treatment Not on file documented as of this encounter Goals Goal Patient Goal Type Associated Problems Recent Progress Patient-Stated? Author Safety - demonstrates understanding of home safety measures General No Brandee Yu RN documented as of this encounter Visit Diagnoses Not on filedocumented in this encounter Additional Health Concerns Assessment Noted Time PHQ-9 Depression Total Score: 3 06/26/19 22 2:26 PM HVAC SPECIALIST documented as of this encounter Care Teams Integration Director Relationship Specialty Start Date End Date Linda Abbasi FNP [address] [place] [id number] PCP - General Nurse Practitioner Family 06/26/21 Elisa Melvin, RN [address] [facility] [address] [place] [address] Registered Nurse CARE MANAGEMENT 01/15/22 03/25/24 documented as of this encounter
--- OUTSIDE RECORDS SUMMARY | 2025-01-25 16:30 | XMS_ITS | Encounter Summary ---
Author Organization [facility] Address [address] [place] [address] Care Team Providers Care Timber Inspector Name Role Phone Linda Abbasi Primary Care Provider [phone] Encounter Details Date Type Department Care Team (Latest Contact Info) Description 01/05/2025 Results Follow-Up [facility] Family & Internal Medicine [id number] [place] [address] Linda Abbasi FNP [facility] [place], [place] [id number] COMPREHENSIVE METABOLIC PANEL Social History Tobacco Use Types Packs/Day Years Used Date Smoking Tobacco: Former Cigarettes Passive Smoke Exposure: Current Smokeless Tobacco: Never Alcohol Use Standard Drinks/Week Comments Not Currently 0 (1 standard drink = 0.6 oz pur e alcohol) quit 5 mons. ago PHQ-2 Answer Date Recorded Patient Health Questionnaire-2 Score 0 07/27/2024 Comments No Sex and Gender Information Value Date Recorded Sex Assigned at Female 07/27/2024 1:43 PM MARKETING AND PUBLIC RELATIONS MANAGER Legal Sex Female 6:34 PM CDT Gender Identity Female 07/27/2024 1:43 PM MARKETING AND PUBLIC RELATIONS MANAGER Sexual Orientation Not on file documented as of this encounter Functional Status [...] Author Status Yes 01/12/2022 12:08 AM CDT Ana Sanchez, RN Active * Do you have difficulty dressing or bathing? Answer Date of Assessment Author Status Yes 01/12/2022 12:08 AM CDT Ana Sanchez RN Active * Because of a physical, mental, or emotional condition, do you have difficulty doing errands alone such as visiting a doctor's office or shopping? Answer Date of Assessment Author Status Yes 01/12/2022 12:08 AM CDT Ana Sanchez RN Active documented as of this encounter Mental Status * Because of a physical, mental, or emotional condition, do you have serious difficulty concentrating, remembering, or making decisions? Answer Entry Date Author Status No 01/12/2022 12:08 AM CDT Ana Sanchez RN Active documented in this encounter Progress Notes * HA [place] - 01/05/2025 2:13 PM CDT Liver enzymes look good. Her bilirubin is higher, is she still seeing the liver specialist? documented in this encounter Plan of Treatment Not on file documented as of this encounter Goals Goal Patient Goal Type Associated Problems Recent Progress Patient-Stated? Author Safety - demonstrates understanding of home safety measures General No Brandee uY RN documented as of this encounter Visit Diagnoses Not on filedocumented in this encounter Additional Health Concerns Assessment Noted Time PHQ-9 Depression Total Score: 0 04/14/20 24 4:01 PM CDT documented as of this encounter Care Teams Timber Inspector Relationship Specialty Start Date End Date Linda Abbasi FNP [address] [place], [place] [id number] PCP - General Nurse Practitioner Family 06/26/21 documented as of this encounter
--- OUTSIDE RECORDS SUMMARY | 2025-01-25 16:30 | XMS_ITS | Referral Summary ---
Author Organization [facility] Care Team Providers Care Dry Cleaning Supervisor Name Role Phone Linda Abbasi NP Primary Care Provider [phone] Linda Abbasi NP Unavailable [phone] Encounters Date Type Department Care Team Description 01/11/2025 Telephone [facility] Trans[facility] Liver [address] [facility] [place] [phone] [place] [address] Analisa Montaño RN from Last 3 Months Allergies Active Allergy Reactions Criticality Noted Date Comments Adhesive Blisters High 05/26/2024 Medications traMADoL (ULTRAM) 50 mg tablet Indications: Chronic Pain TAKE 1 TO 2 TABLETS BY MOUTH EVERY 6 HOURS NEEDED FOR CHRONIC PAIN 05/28/2024 Active traZODone (DESYREL) 100 mg tablet Take 1 tablet (100 mg total) by mouth daily 12/05/2023 Active montelukast (SINGULAIR) 10 mg tablet Take 1 tablet (10 mg total) by mouth daily 12/12/2023 Active gabapentin (NEURONTIN) 300 mg capsule Take 1 capsule (300 mg total) by mouth 3 (three) times a day 05/04/2024 Active dexlansoprazole (Dexilant) 60 mg capsule Take 1 capsule (60 mg total) by mouth daily Active cyanocobalamin (Vitamin B-12) 500 mcg tablet Take 1 tablet (500 mcg total) by mouth daily Active citalopram (CeleXA) 10 mg tablet Take 1 tablet (10 mg total) by mouth daily 12/05/2023 Active aspirin 81 mg enteric coated tablet Take 1 tablet (81 mg total) by mouth daily Active cholecalciferol , vitamin D3, (Vitamin D3) 1,000 unit tablet,chewable Take by mouth Active Active Problems Problem Noted Date Diagnosed Date Sensorineural hearing loss, bilateral 09/10/2024 Tinnitus, bilateral 09/10/2024 Alcoholic cirrhosis of liver without ascites Assessment & Plan (07/08/2024 12:30 PM BEEKEEPER FARMER): Decompensated based on a history of hepatic synthetic dysfunction. The MELD score today is up to 21, thus, the lack of improvement over the course of 3 months suggests the changes are irreversible. Clearly alcohol abstinence will be roberts to any chance at improvement. The weight loss will likely lead to a decrease in hepatic steatosis, however, there is no guarantee this will lead to biochemical improvement. We discussed the possibility of liver transplantation. Initially, she was not enthusiastic and would like to wait a few months before making a decision. I told her one of our staff will reach out to her within the week to see if she would like to return for a liver transplant evaluation. Otherwise, she will return in 3 months and will be reassessed. With regard to her transplant candidacy, her debilitation is a concern. Unfortunately, with arthritic knees, I am not optimistic this will ever improve significantly. Osteoarthritis of left knee 07/08/2024 Assessment & Plan (07/08/2024 12:32 PM BEEKEEPER FARMER): Pain increases after 20-30 minutes of activity. I am skeptical knee replacement can occur safely in the face of decompensated liver disease with jaundice and a coagulopathy. Hepatic encephalopathy 07/08/2024 Assessment & Plan (07/08/2024 12:31 PM BEEKEEPER FARMER): Mild, based on short-term memory loss and hyper irritability. I am not convinced this requires medical treatment. Obviously, worsening of symptoms will likely lead to the need for lactulose and rifaximin. Metabolic dysfunction-associ ated steatotic liver disease and increased alcohol intake (MetALD) 07/08/2024 Assessment & Plan (07/08/2024 12:31 PM BEEKEEPER FARMER): Probable improvement in the face of weight loss. I encouraged her to continue her efforts at caloric restriction and exercise as tolerated. Alcohol dependence in remission 06/26/2021 Assessment & Plan (07/08/2024 12:30 PM BEEKEEPER FARMER): I stressed the importance of ongoing alcohol abstinence. A return to heavy drinking would clearly lead to additional liver injury and decompensation. Chronic midline low back pain with left-sided sc iatica 06/26/2021 Cigarette smoker 06/26/2021 Neuropathy 06/26/2021 Vitamin D deficiency 06/26/2021 Essential hypertension 05/05/2021 Anxiety 06/10/2018 Chronic obstructive pulmonary disease 06/10/2018 Social History Tobacco Use Types Packs/Day Years Used Date Smoking Tobacco: Some Days Cigarettes Smokeless Tobacco: Never Tobacco Cessation:Ready to Q uit: Not Asked; Counseling Given: Not Answered Comments Unknown Sex and Gender Information Value Date Recorded Sex Assigned at Not on file Legal Sex Female 9:32 AM BEEKEEPER FARMER Gender Identity Not on file Sexual Orientation Not on file Last Filed Vital Signs Vital Sign Reading Time Taken Comments Blood Pressure 127/76 09/10/2024 3:37 PM CDT Pulse 69 09/10/2024 3:37 PM CDT Temperature 37.3 C (99.1 F) 07/08/2024 11:20 AM BEEKEEPER FARMER Respiratory Rate - - Oxygen Saturation 97% 09/10/2024 3:37 PM CDT Inhaled Oxygen Concentration - - Weight 90.7 kg (200 lb) 09/10/2024 3:37 PM CDT Height 162.6 cm (5' 4.02) 09/10/2024 3:37 PM CD T Body Mass Index 34.31 09/10/2024 3:37 PM CDT Plan of Treatment Not on file Insurance [facility] MEDICARE [facility] Address: [address] [address] [place] [address] [facility]IC[facility] Address: [address] [address] [place] [address] Care Teams Dry Cleaning Supervisor Relationship Specialty Start Date End Date Linda Abbasi NP PCP - General Nurse Practitioner 07/26/22 Linda Abbasi NP [address] [place] [address] Referring Physician Nurse Practitioner 05/11/24
--- OUTSIDE RECORDS SUMMARY | 2025-01-25 16:30 | XMS_ITS | Clinical Summary ---
Author Organization [facility] Care Team Providers Care Yard Specialist Name Role Phone Linda Abbasi NP Primary Care Provider [phone] Linda Abbasi NP Unavailable [phone] Allergies Active Allergy Reactions Criticality Noted Date [...] ascites Assessment & Plan (07/08/2024 12:30 PM SKILL LABOR): Decompensated based on a history of hepatic [...] 07/08/2024 Assessment & Plan (07/08/2024 12:32 PM SKILL LABOR): Pain increases after 20-30 minutes of activity. I am skeptical knee replacement can occur safely in the face of decompensated liver disease with jaundice and a coagulopathy. Hepatic encephalopathy 07/08/2024 Assessment & Plan (07/08/2024 12:31 PM SKILL LABOR): Mild, based on short-term memory loss and hyper irritability. I am not convinced this requires medical treatment. Obviously, worsening of symptoms will likely lead to the need for lactulose and rifaximin. Metabolic dysfunction-associ ated steatotic liver disease and increased alcohol intake (MetALD) 07/08/2024 Assessment & Plan (07/08/2024 12:31 PM SKILL LABOR): Probable improvement in the face of weight loss. I encouraged her to continue her efforts at caloric restriction and exercise as tolerated. Alcohol dependence in remission 06/26/2021 Assessment & Plan (07/08/2024 12:30 PM SKILL LABOR): I stressed the importance of ongoing alcohol abstinence. A return to heavy drinking would clearly lead to additional liver injury and decompensation. Chronic midline low back pain with left-sided sc iatica 06/26/2021 Cigarette smoker 06/26/2021 Neuropathy 06/26/2021 Vitamin D deficiency 06/26/2021 Essential hypertension 05/05/2021 Anxiety 06/10/2018 Chronic obstructive pulmonary disease 06/10/2018 Encounters Date Type Department Care Team Description 01/11/2025 Telephone [facility] Transplant Liver [address] [facility] [phone] [place] [address] Analisa Montaño RN from Last 3 Months Social History Tobacco Use Types Packs/Day Years Used Date Smoking Tobacco: Some Days Cigarettes Smokeless Tobacco: Never Tobacco Cessation:Ready to Q uit: Not Asked; Counseling Given: Not Answered Comments Unknown Sex and Gender Information Value Date Recorded Sex Assigned at Not on file Legal Sex Female 9:32 AM SKILL LABOR Gender Identity Not on file Sexual Orientation Not on file Obstetrics History Last Filed Vital Signs Vital Sign Reading Time Taken Comments Blood Pressure 127/76 09/10/2024 3:37 PM CDT Pulse 69 09/10/2024 3:37 PM CDT Temperature 37.3 C (99.1 F) 07/08/2024 11:20 AM SKILL LABOR Respiratory Rate - - Oxygen Saturation 97% 09/10/2024 3:37 PM CDT Inhaled Oxygen Concentration - - Weight 90.7 kg (200 lb) 09/10/2024 3:37 PM CDT Height 162.6 cm (5' 4.02) 09/10/2024 3:37 PM CD T Body Mass Index 34.31 09/10/2024 3:37 PM CDT Plan of Treatment Health Maintenance Due Date Last Done Comments Breast Cancer Screening-Mammogram 1957 Colon Cancer Screening-Colonoscopy 1957 Depression Screening 1957 Fall Risk Assessment 1957 Hepatitis C Screening 1957 Osteoporosis Screening-Bone Density Scan 1957 Hepatitis B Screening 1975 Zoster Vaccine (1 of 2) 2007 Well Visit 65+ 2022 Covid-19 Vaccine (2023-2 5 season) 2024 05/08/2022, 05/11/2021, 09/17/2020, Additional history exists Influenza Vaccine (#1) 2025 , 05/08/2022, 2021, Additional history exists DTaP/Tdap/Td Vaccine (2 - Td or Tdap) 06/26/2031 06/26/2021 Pneumococcal vaccine 65+ Completed 07/13/2022 Insurance MEDICARE ADVANTAGE Care Teams Yard Specialist Relationship Specialty Start Date End Date Linda Abbasi NP PCP - General Nurse Practitioner 07/26/22 Linad Abbasi NP [address] [place] [id number] Referring Physician Nurse Practitioner 05/11/24
== END 2025-01-25 16:26 | disposition home or self-care (01) ==
PROVIDERS: PCP Nurse Practitioner Family; Visit Provider Podiatrist Foot & Ankle Surgery
DX: M79.662 Pain in left lower leg (principal); M79.661 Pain in right lower leg
CPT/HCPCS: 93970